=== PATIENT | male | born 1980 | race Caucasian/White ===

== ENCOUNTER 2016-11-15 13:58 | Emergency (ER) | payer OTHER ==
[2016-11-15] MEDS ORDERED: MORPHINE 4 MG/ML SYR ONE (14:37)
[2016-11-15] MEDS ORDERED: KETOROLAC 60 MG/2 ML VIAL IM ONE (14:44)
== END 2016-11-15 15:31 | disposition home or self-care (01) ==
LOC: ER 13:58
CPT/HCPCS: 96372